=== PATIENT | male | born 1980 | race Caucasian/White ===

== ENCOUNTER 2023-10-19 09:53 | Emergency (ER) | payer SELFPAY ==
[~2023-10-19] VITALS: Ht 177.8 cm; Wt 70.0 kg
[2023-10-19 09:55] VITALS: BP 161/82; PULSE 90; RESP 16; TEMP 98.7; O2SAT 98
[2023-10-19] MEDS ORDERED: BACITRACIN/POLYMYXIN B SULFATE OINT 15GM TOP ONE (10:00)
[2023-10-19] MEDS: ACETAMINOPHEN 325MG TABLET PO ONE (10:16)
[2023-10-19] MEDS ORDERED: IBUP-2029 MT (10:36)
[2023-10-19] MEDS ORDERED: BO1 TP (10:36)
== END 2023-10-19 12:15 | disposition home or self-care (01) ==
LOC: ER 09:53
DX: S92.491A Other fracture of right great toe, initial encounter for closed fracture (principal); S90.811A Abrasion, right foot, initial encounter; X58.XXXA Exposure to other specified factors, initial encounter; Y93.89 Activity, other specified; Y92.89 Other specified places as the place of occurrence of the external cause; Y99.8 Other external cause status
CPT/HCPCS: 73630; 99283